=== PATIENT | male | born 1985 | race American Indian/Alaskan Native ===

== ENCOUNTER 2016-11-20 01:37 | Emergency (ER) | payer SELFPAY ==
[2016-11-20 02:03] VITALS: BP 145/92
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
== END 2016-11-20 04:45 | disposition left against medical advice (07) ==
LOC: ED 01:37
DX: Z04.1 Encounter for examination and observation following transport accident (principal); Z53.21 Procedure and treatment not carried out due to patient leaving prior to being seen by health care provider; V89.2XXA Person injured in unspecified motor-vehicle accident, traffic, initial encounter; Y93.9 Activity, unspecified; Y99.9 Unspecified external cause status; Y92.410 Unspecified street and highway as the place of occurrence of the external cause